=== PATIENT | female | born 1970 | race Caucasian/White ===

== ENCOUNTER 2017-09-29 17:57 | Observation (INO) | payer OTHER ==
[~2017-09-29] VITALS: Ht 175.3 cm; Wt 116.0 kg
[2017-09-29 18:44] LABS: HEMATOCRIT 42.5 % (36.0-46.0); HEMOGLOBIN 15.2 G/DL (11.9-15.5); MCH 31.9 PG (29.0-34.0); MCHC 35.8 G/DL (30.0-36.0); MCV 89.1 FL (83-99); PLATELET COUNT 253 K/uL (156-360); RBC DIS.WIDTH-CV 11.4 % (11.8-14.6); RBC DIS.WIDTH-SD 36.8 % (39-53); RED BLOOD COUNT 4.77 M/uL (3.80-5.20); WHITE BLOOD COUNT 9.8 K/uL (4.1-10.2)
[2017-09-29 18:54] LABS: CHLORIDE 102 mEq/L (99-109); POTASSIUM 3.3 mEq/L (3.7-5.4); SODIUM 139 mEq/L (136-147)
[2017-09-29 18:56] LABS: GLUCOSE 105 mg/dL (70-99)
[2017-09-29 19:00] LABS: GFR ESTIMATE (CALCULATED) > 59 mL/min/
[2017-09-29 19:01] LABS: UREA NITROGEN (BUN) 20 mg/dL (9-23)
[2017-09-29 19:06] LABS: TROP-I INTERPRETATION NEGATIVE; TROPONIN-I 0.01 ng/mL (0.0-0.30)
[2017-09-29] MEDS ORDERED: LO LOESTRIN FE1 EACH PO (21:24)
[2017-09-29] MEDS ORDERED: DAILY VITE1 EAC1 PO (21:24)
[2017-09-29] MEDS ORDERED: COLACE100 MG PO (21:25)
[2017-09-29] MEDS ORDERED: HYDROCHLOROTHIA25 MG PO (21:25)
[2017-09-29 22:03] LABS: TROP-I INTERPRETATION NEGATIVE; TROPONIN-I < 0.01 ng/mL (0.0-0.30)
[2017-09-30 03:32] LABS: ALBUMIN 4.4 g/dL (3.2-4.8)
[2017-09-30 03:37] LABS: TOTAL BILIRUBIN 0.5 mg/dL (0.0-1.0)
[2017-09-30 03:38] LABS: ALKALINE PHOSPHATASE 101 IU/L (3-129)
[2017-09-30 03:40] LABS: AST (GOT) 22 IU/L (2-34); DIRECT BILIRUBIN 0.2 mg/dL (0.0-0.3)
[2017-09-30 03:41] LABS: ALT (GPT) 27 IU/L (3-49); LIPASE 16 U/L (1.0-51.0)
[2017-09-30 04:25] LABS: TROP-I INTERPRETATION NEGATIVE; TROPONIN-I < 0.01 ng/mL (0.0-0.30)
[2017-09-30 10:41] LABS: TROP-I INTERPRETATION NEGATIVE; TROPONIN-I < 0.01 ng/mL (0.0-0.30)
[2017-09-30 12:24] VITALS: BP 127/77
== END 2017-09-30 12:24 | disposition home or self-care (01) ==
LOC: EME 17:57 → EDOF 09-30 01:31 → CANRESERV 09-30 01:34 → ENRESERV 09-30 01:34 → EDOF 09-30 02:38
PROVIDERS: Hospitalist; Physician Assistant
DX: R07.9 Chest pain, unspecified (principal); R94.31 Abnormal electrocardiogram [ECG] [EKG]; R01.1 Cardiac murmur, unspecified; I10 Essential (primary) hypertension; E87.6 Hypokalemia; M79.602 Pain in left arm; R20.0 Anesthesia of skin
CPT/HCPCS: 71046; 71275; 80048; 80076; 83690; 84484; 85027; 93005; G0378; J7030